=== PATIENT | male | born 1960 | race Caucasian/White ===

== ENCOUNTER 2024-12-27 06:31 | Inpatient (IN) | payer SELFPAY ==
[~2024-12-27] VITALS: Ht 165.1 cm; Wt 86.7 kg
[2024-12-27 06:36] VITALS: O2SAT 98
[2024-12-27] MEDS: SODIUM CHLORIDE 0.9% 1,000 ML IV ONE (08:03)
[2024-12-27] MEDS: ONDANSETRON HCL 4MG/2ML INJ IV ONE (08:20)
[2024-12-27 08:24] LABS: BASOPHILS % 0.4 % (0.0-2.0); EOSINOPHILS % 0.1 % (0.0-5.0); HEMATOCRIT. 39.8 % (42.0-52.0); HEMOGLOBIN. 13.7 g/dL (14.0-18.0); LYMPHOCYTES % 11.8 % (20.0-50.0); MEAN PLATELET VOLUME 8.7 fl (7.4-10.4); MONOCYTES % 4.8 % (2.0-8.0); NEUTROPHILS % 82.9 % (40.0-76.0); PLATELET 188 x1000/uL (130-400); RED BLOOD CELL COUNT 4.52 mill/uL (4.7-6.1); RED CELL DISTRIBUTION WIDTH 13.2 % (11.6-14.6)
[2024-12-27 08:38] LABS: CREATININE 0.8 mg/dL (0.6-1.3)
[2024-12-27 08:39] LABS: UREA NITROGEN BLOOD 10 mg/dL (9-23)
[2024-12-27 08:40] LABS: ASPARTATE AMINOTRANSFERASE 25 IU/L (<34); TROPONIN I HIGH SENSITIVITY < 4 ng/L (3.0-53)
[2024-12-27 08:41] LABS: BILIRUBIN DIRECT 0.2 mg/dL (<=3.0); BILIRUBIN TOTAL 0.5 mg/dL (0.1-1.0); PROTEIN TOTAL 7.3 g/dL (6.0-8.3)
[2024-12-27] MEDS ORDERED: MAGNESIUM/ALUMINUM HYDROXIDE/SIMETHICONE 30ML UDC PO PRN (09:45)
[2024-12-27] MEDS ORDERED: CLONIDINE 0.1MG TABLET PO PRN (09:45)
[2024-12-27] MEDS ORDERED: DOCUSATE SODIUM 100MG CAPSULE PO PRN (09:45)
[2024-12-27] MEDS ORDERED: IPRATROPIUM/ALBUTEROL 0.5-3(2.5)MG/3ML NEB HHN PRN (09:45)
[2024-12-27] MEDS ORDERED: GUAIFENESIN 200MG/10ML SUGAR FREE UDC PO PRN (09:45)
[2024-12-27] MEDS ORDERED: MECLIZINE 12.5MG TABLET PO PRN (09:45)
[2024-12-27] MEDS ORDERED: ACETAMINOPHEN 325MG TABLET PO PRN (09:45)
[2024-12-27 11:00] VITALS: BP 148/81; PULSE 68; RESP 20; TEMP 36.7516
[2024-12-27] MEDS: AMLODIPINE 10MG TABLET PO SCH (11:49)
[2024-12-27] MEDS: MECLIZINE 25MG TABLET PO SCH (11:50)
[2024-12-27] MEDS: DEXT 5%/0.9% NACL 1,000 ML IV SCH (11:50)
[2024-12-27 12:00] VITALS: BP 159/76; PULSE 61; RESP 18; TEMP 36.3; O2SAT 96
[2024-12-27 15:32] LABS: CLARITY URINE CLEAR (CLEAR); COLOR URINE YELLOW (YELLOW); GLUCOSE URINE NEGATIVE (NEGATIVE); KETONES URINE 1+ (NEGATIVE); LEUKOCYTE ESTERASE URINE NEGATIVE (NEGATIVE); NITRITE URINE NEGATIVE (NEGATIVE); OCCULT BLOOD URINE NEGATIVE (NEGATIVE); PH URINE 8.0 (4.5-8.0); PROTEIN URINE NEGATIVE (NEGATIVE); SPECIFIC GRAVITY URINE 1.015 (1.005-1.030); UROBILINOGEN URINE 0.2 E.U./dL (0.2-1.0)
[2024-12-27 15:45] LABS: *AMPHETAMINES SCREEN URINE NEGATIVE (NEGATIVE); *BENZODIAZEPINES SCREEN URINE NEGATIVE (NEGATIVE)
[2024-12-27 15:46] LABS: *BARBITURATES SCREEN URINE NEGATIVE (NEGATIVE); *COCAINE SCREEN URINE NEGATIVE (NEGATIVE); CANNABINOID URINE SCREEN NEGATIVE (NEGATIVE); ECSTASY MDMA SCREEN URINE NEGATIVE (NEGATIVE); METHADONE URINE SCREEN NEGATIVE (NEGATIVE); OPIATES URINE SCREEN NEGATIVE (NEGATIVE); PHENCYCLIDINE URINE SCREEN NEGATIVE (NEGATIVE)
[2024-12-27 16:00] VITALS: BP 118/67; PULSE 60; RESP 18; TEMP 36.5; O2SAT 96
[2024-12-27 20:00] VITALS: BP 114/59; PULSE 66; RESP 18; TEMP 36.7; O2SAT 99
[2024-12-27] MEDS: ATORVASTATIN CALCIUM 10MG TABLET PO SCH (20:36)
[2024-12-27] MEDS ORDERED: ATOR20TA65 PO (23:52)
[2024-12-27] MEDS ORDERED: LISI20TA31 PO (23:52)
[2024-12-27] MEDS ORDERED: ASPI-1406 PO (23:52)
[2024-12-28] VITALS (7 sets, daily range): BP systolic 99–141; BP diastolic 46–72; PULSE 52–71; RESP 18–20; TEMP 36.3–36.6; O2SAT 95–99
[2024-12-28 06:48] LABS: BASOPHILS % 0.4 % (0.0-2.0); EOSINOPHILS % 1.3 % (0.0-5.0); HEMATOCRIT. 40.2 % (42.0-52.0); HEMOGLOBIN. 13.7 g/dL (14.0-18.0); LYMPHOCYTES % 27.9 % (20.0-50.0); MEAN PLATELET VOLUME 9.0 fl (7.4-10.4); MONOCYTES % 8.4 % (2.0-8.0); NEUTROPHILS % 62.0 % (40.0-76.0); PLATELET 197 x1000/uL (130-400); RED BLOOD CELL COUNT 4.52 mill/uL (4.7-6.1); RED CELL DISTRIBUTION WIDTH 13.6 % (11.6-14.6)
[2024-12-28 06:50] LABS: CREATININE 0.8 mg/dL (0.6-1.3); TRIGLYCERIDE 100 mg/dL (0-150); UREA NITROGEN BLOOD 6 mg/dL (9-23)
[2024-12-28 06:51] LABS: LDL CHOLESTEROL 90 mg/dL (5-100); T4 FREE 1.11 ng/dL (0.89-1.76)
[2024-12-28] MEDS: ASPIRIN 81MG EC TABLET PO SCH (09:13)
[2024-12-28] MEDS: PANTOPRAZOLE SODIUM 40 MG/VIAL IV SCH (09:13)
[2024-12-28] MEDS: MECLIZINE 25MG TABLET PO PRN ×2 (09:16→16:48)
[2024-12-28] MEDS: ACETAMINOPHEN 325MG TABLET PO PRN (09:16)
[2024-12-28] MEDS: AMOXICILLIN/POTASSIUM CLAVULANATE 875/125MG TAB PO SCH (11:29)
[2024-12-28] MEDS: PREDNISONE 20MG TABLET PO SCH (11:29)
[2024-12-28] MEDS: ONDANSETRON HCL 4MG/2ML INJ IV PRN (18:31)
[2024-12-29 00:02] VITALS: BP 92/52; PULSE 65; RESP 19; TEMP 36.1; O2SAT 95
[2024-12-29 04:10] VITALS: BP 95/42; PULSE 60; RESP 19; TEMP 36.3; O2SAT 99
[2024-12-29 08:00] VITALS: BP 113/58; PULSE 57; RESP 16; TEMP 35.9; O2SAT 97
[2024-12-29 08:34] LABS: BASOPHILS % 0.4 % (0.0-2.0); EOSINOPHILS % 0.8 % (0.0-5.0); HEMATOCRIT. 39.9 % (42.0-52.0); HEMOGLOBIN. 13.6 g/dL (14.0-18.0); LYMPHOCYTES % 21.9 % (20.0-50.0); MEAN PLATELET VOLUME 9.2 fl (7.4-10.4); MONOCYTES % 6.9 % (2.0-8.0); NEUTROPHILS % 70.0 % (40.0-76.0); PLATELET 223 x1000/uL (130-400); RED BLOOD CELL COUNT 4.50 mill/uL (4.7-6.1); RED CELL DISTRIBUTION WIDTH 13.0 % (11.6-14.6)
[2024-12-29 08:41] LABS: CREATININE 0.8 mg/dL (0.6-1.3); UREA NITROGEN BLOOD 11 mg/dL (9-23)
[2024-12-29 12:00] VITALS: BP 106/52; PULSE 58; RESP 16; TEMP 35.9; O2SAT 94
[2024-12-29] MEDS ORDERED: AMOX1TAB16 PO (14:07)
[2024-12-29] MEDS ORDERED: P20 PO (14:07)
[2024-12-29] MEDS ORDERED: MECL-299 PO (14:07)
[2024-12-29 16:00] VITALS: BP 111/61; PULSE 65; RESP 18; TEMP 36.7; O2SAT 95
[2024-12-29 16:25] VITALS: BP 106/52; PULSE 58; RESP 16; TEMP 96.7
== END 2024-12-29 19:28 | disposition home or self-care (01) | DRG 111 ==
LOC: ER 06:31 → 7WST 08:44 → EDBEDREQTM 08:55 → EDBEDREQ 08:55 → EDBEDREQSVC 08:55 → ENRESERV 09:16
PROVIDERS: ADMIT Hospitalist; ATTEND Hospitalist
DX: H81.09 Meniere's disease, unspecified ear (principal); D64.9 Anemia, unspecified; H66.92 Otitis media, unspecified, left ear; I10 Essential (primary) hypertension; E78.5 Hyperlipidemia, unspecified; E78.00 Pure hypercholesterolemia, unspecified; I25.10 Atherosclerotic heart disease of native coronary artery without angina pectoris; Z79.82 Long term (current) use of aspirin; K21.9 Gastro-esophageal reflux disease without esophagitis; Z79.899 Other long term (current) drug therapy
CPT/HCPCS: 36415; 74176; 80048; 80061; 80076; 80305; 81003; 83036; 84439; 84443; 84484; 85025; 93005; 93970; 96361; 96374; 99285; J2405; J2470; J7030; J7042; J7512; J8597